=== PATIENT | female | born 1985 | race Caucasian/White ===

== ENCOUNTER → 2022-04-26 | Outpatient (CLI) | payer OTHER ==
[2022-04-26 14:01] LABS: BASO % 0.4 % (0.0-1.0); EOS # 0.2 10^3/uL (0.0-0.5); EOS % 3.8 % (0.0-3.0); HEMOGLOBIN 12.9 g/dl (12.0-15.5); LYMPH # 2.3 10^3/uL (1.5-5.0); LYMPH % 46.9 % (24.0-44.0); MEAN CORPUSCULAR HEMOGLOBIN 30.5 pg (27.0-33.0); MEAN CORPUSCULAR HGB CONC 34.9 g/dl (32.0-36.5); MEAN CORPUSCULAR VOLUME 87.5 fl (80.0-96.0); MONO # 0.5 10^3/uL (0.0-0.8); MONO % 9.6 % (2.0-8.0); NEUTROPHILS # 1.9 10^3/uL (1.5-8.5); NEUTROPHILS % 38.9 % (36.0-66.0); PLATELET COUNT, AUTOMATED 225 10^3/uL (150-450); RED BLOOD COUNT 4.23 10^6/uL (4.00-5.40); WHITE BLOOD COUNT 4.8 10^3/uL (4.0-10.0)
[2022-04-26 14:14] LABS: APPEARANCE, URINE MANUAL CLEAR (CLEAR); COLOR, URINE MANUAL YELLOW (YELLOW); SPECIFIC GRAVITY,URINE MANUAL 1.015 (1.002-1.035)
[2022-04-26 14:15] LABS: BILIRUBIN, URINE MANUAL NEGATIVE (NEGATIVE); BLOOD URINE MANUAL NEGATIVE (NEGATIVE); GLUCOSE, URINE (UA) MANUAL NEGATIVE (NEGATIVE); KETONE, URINE MANUAL NEGATIVE (NEGATIVE); LEUKOCYTE ESTERASE, URINE MAN NEGATIVE (NEGATIVE); NITRITE, URINE MANUAL NEGATIVE (NEGATIVE); PROTEIN, URINE MANUAL NEGATIVE (NEGATIVE); UROBILINOGEN, URINE MANUAL NORMAL (NORMAL)
[2022-04-26 14:40] LABS: FERRITIN 31.4 NG/ML (7.3-270.7)
[2022-04-26 14:41] LABS: ALBUMIN 3.4 G/DL (3.2-5.2); BLOOD UREA NITROGEN 16 MG/DL (9-23); CALCIUM LEVEL 8.9 MG/DL (8.5-10.1); CARBON DIOXIDE LEVEL 28 MMOL/L (20-31); CHLORIDE LEVEL 102 MMOL/L (98-107); CREATININE FOR GFR 0.69 MG/DL (0.55-1.30); GLOMERULAR FILTRATION RATE > 60.0 (>60); GLUCOSE, FASTING 90 MG/DL (60-100); IRON (FE) 72 UG/DL (50-170); PERCENT SATURATION 20.7 % (13.2-45.0); PHOSPHORUS LEVEL 4.8 MG/DL (2.5-4.9); POTASSIUM SERUM 4.3 MMOL/L (3.5-5.1); SODIUM LEVEL 139 MMOL/L (136-145); TOTAL IRON BINDING CAPACITY 348 UG/DL (250-425)
[2022-04-26 14:43] LABS: TOTAL 25(OH) VITAMIN D 20.5 NG/ML (20.0-100.0)
[2022-04-26 14:52] LABS: HEPATITIS B SURFACE ANTIGEN NEGATIVE (NEGATIVE)
[2022-04-26 15:14] LABS: HEPATITIS B CORE ANTIBODY IGM NEGATIVE (NEGATIVE)
[2022-04-26 15:35] LABS: HEPATITIS C VIRUS ABY INDEX 7.9 INDEX (<0.8)
== END ==
LOC: M PLALAB 11:03
PROVIDERS: ATTEND Physician Assistant
DX: Z02.2 Encounter for examination for admission to residential institution (principal); D50.9 Iron deficiency anemia, unspecified; E55.9 Vitamin D deficiency, unspecified

== ENCOUNTER 2022-07-18 07:34 | Inpatient (IN) | payer OTHER ==
[~2022-07-18] VITALS: Ht 157.5 cm; Wt 99.8 kg
[2022-07-18] MEDS ORDERED: OMEP-173 PO (07:42)
[2022-07-18] MEDS ORDERED: FLUO40CA PO (07:42)
[2022-07-18] MEDS ORDERED: BUPR300T92 PO (07:42)
[2022-07-18] MEDS ORDERED: SUBL300I SC (07:42)
[2022-07-18] MEDS ORDERED: GABA600T4 (07:42)
[2022-07-18] MEDS ORDERED: CEFD250S26 PO (07:43)
[2022-07-18 08:11] LABS: BASO % 0.6 % (0.0-1.0); EOS # 0.1 10^3/uL (0.0-0.5); EOS % 2.6 % (0.0-3.0); HEMATOCRIT 40.6 % (36.0-47.0); HEMOGLOBIN 14.6 g/dl (12.0-15.5); LYMPH # 1.4 10^3/uL (1.5-5.0); LYMPH % 26.1 % (24.0-44.0); MEAN CORPUSCULAR HEMOGLOBIN 30.3 pg (27.0-33.0); MEAN CORPUSCULAR VOLUME 84.2 fl (80.0-96.0); MONO # 0.4 10^3/uL (0.0-0.8); MONO % 6.9 % (2.0-8.0); NEUTROPHILS # 3.4 10^3/uL (1.5-8.5); NEUTROPHILS % 63.4 % (36.0-66.0); RED BLOOD COUNT 4.82 10^6/uL (4.00-5.40); WHITE BLOOD COUNT 5.4 10^3/uL (4.0-10.0)
[2022-07-18 08:34] LABS: HCG, SERUM QUALITATIVE NEGATIVE (NEGATIVE)
[2022-07-18 08:41] LABS: ETHYL ALCOHOL (ETHANOL) < 0.003 % (0.000-0.010)
[2022-07-18 08:42] LABS: ACETAMINOPHEN LEVEL < 2.0 UG/ML (10.0-20.0)
[2022-07-18 08:43] LABS: ALBUMIN 3.8 G/DL (3.2-5.2); ALKALINE PHOSPHATASE 91 U/L (46-116); ALT/SGPT 54 U/L (7.0-40); AST/SGOT 64 U/L (<34); BILIRUBIN,DIRECT 0.1 MG/DL (<0.4); BILIRUBIN,TOTAL 0.4 MG/DL (0.3-1.2); BLOOD UREA NITROGEN 11 MG/DL (9-23); CALCIUM LEVEL 8.7 MG/DL (8.5-10.1); CARBON DIOXIDE LEVEL 21 MMOL/L (20-31); CHLORIDE LEVEL 106 MMOL/L (98-107); CREATININE FOR GFR 0.74 MG/DL (0.55-1.30); GLOMERULAR FILTRATION RATE > 60.0 (>60); GLUCOSE, FASTING 112 MG/DL (60-100); POTASSIUM SERUM 3.7 MMOL/L (3.5-5.1); SALICYLATE LEVEL < 3.0 MG/DL (<30); SODIUM LEVEL 136 MMOL/L (136-145); TOTAL PROTEIN 7.2 G/DL (5.7-8.2)
[2022-07-18 08:44] LABS: THYROID STIMULATING HORMONE 0.822 uIU/ML (0.55-4.78)
[2022-07-18 08:47] LABS: CPK CREATINE PHOSPHOKINASE 92 U/L (34-145)
[2022-07-18] MEDS ORDERED: ISOVUE-370 76% 100ML VIAL As Ordered ONE (08:50)
[2022-07-18] MEDS: NICOTINE 21MG/24HR 1 EA TRANSDERMAL TD SCH (09:00)
[2022-07-18] MEDS ORDERED: diphenhydrAMINE 25MG CAP PO PRN (12:45)
[2022-07-18] MEDS ORDERED: MAALOX 30 ML SUSP *UDC PO PRN (12:45)
[2022-07-18] MEDS ORDERED: IBUPROFEN 400MG TAB PO PRN ×2 (12:45→22:15)
[2022-07-18 13:04] LABS: AMPHETAMINES LEVEL URINE NEGATIVE (NEGATIVE); BARBITURATES URINE NEGATIVE (NEGATIVE); BENZODIAZEPINES URINE NEGATIVE (NEGATIVE); CANNABINOIDS URINE NEGATIVE (NEGATIVE); COCAINE METABOLITE URINE NEGATIVE (NEGATIVE); METHADONE URINE NEGATIVE (NEGATIVE); OPIATES URINE NEGATIVE (NEGATIVE); PHENCYCLIDINE URINE NEGATIVE (NEGATIVE)
[2022-07-18] MEDS ORDERED: HAIRTAB10 PO (14:05)
[2022-07-18] MEDS ORDERED: GABA800T4 PO (14:05)
[2022-07-18] MEDS ORDERED: CETI10TA4 PO (14:05)
[2022-07-18] MEDS ORDERED: HYDR-3363 PO (14:05)
[2022-07-18] MEDS ORDERED: NICO1DIS12 TD (14:05)
[2022-07-18] MEDS ORDERED: VESI5TAB2 PO (14:05)
[2022-07-18] MEDS ORDERED: SUMA100T2 PO (14:05)
[2022-07-18] MEDS ORDERED: CEFD300C41 PO (14:05)
[2022-07-18] MEDS ORDERED: DOXA1TAB40 PO (14:05)
[2022-07-18] MEDS ORDERED: IBUP200T46 PO (14:05)
[2022-07-18] MEDS ORDERED: ONDA-83 PO (14:05)
[2022-07-18] MEDS ORDERED: NICO-265 MT (14:08)
[2022-07-18] MEDS ORDERED: HOME MED LIST COMPLETE! XX SCH (14:10)
[2022-07-18 17:51] VITALS: BP 100/58
[2022-07-18] MEDS: ACETAMINOPHEN TAB 650MG DOSE (2X325MG) PO PRN (17:56)
[2022-07-18] MEDS: CEFDINIR 300 MG CAP (OMNICEF) PO SCH (22:54)
[2022-07-18] MEDS: GABAPENTIN 400MG CAP PO SCH (22:58)
[2022-07-18] MEDS: DOXAZOSIN MESYLATE 4 MG TAB PO SCH (22:58)
[2022-07-18] MEDS: SUMAtriptan SUCCINATE 25 MG TAB PO PRN (22:58)
[2022-07-19 06:17] VITALS: BP 106/55
[2022-07-19] MEDS: NICOTINE 21MG/24HR 1 EA TRANSDERMAL TD SCH (08:50)
[2022-07-19] MEDS: CETIRIZINE (ZyrTEC) 10 MG TAB PO SCH (08:50)
[2022-07-19] MEDS: GABAPENTIN 400MG CAP PO SCH ×3 (08:50→21:00)
[2022-07-19] MEDS: ACETAMINOPHEN TAB 650MG DOSE (2X325MG) PO PRN (08:51)
[2022-07-19] MEDS: OMEPRAZOLE 20MG CAP PO SCH (08:51)
[2022-07-19] MEDS: buPROPion **XL** TABLET 150MG (WELLBUTRIN XL) PO SCH (08:51)
[2022-07-19] MEDS: SOLIFENACIN 5 MG TAB PO SCH (08:51)
[2022-07-19] MEDS: CEFDINIR 300 MG CAP (OMNICEF) PO SCH ×2 (08:52→21:00)
[2022-07-19] MEDS ORDERED: NICOTINE 21MG/24HR 1 EA TRANSDERMAL TD SCH (09:00)
[2022-07-19] MEDS ORDERED: FLUoxetine 20MG CAP PO SCH (09:00)
[2022-07-19 16:18] VITALS: BP 115/67
[2022-07-19] MEDS: DOXAZOSIN MESYLATE 4 MG TAB PO SCH (21:00)
[2022-07-19] MEDS: MOM 30ML SUSPENSION UDC PO PRN (22:23)
[2022-07-19] MEDS: OLANZapine ORAL DISINTEGRATING TAB 5MG PO PRN (22:23)
[2022-07-20 06:29] VITALS: BP 91/61
[2022-07-20] MEDS: CETIRIZINE (ZyrTEC) 10 MG TAB PO SCH (08:44)
[2022-07-20] MEDS: CEFDINIR 300 MG CAP (OMNICEF) PO SCH ×2 (08:44→20:58)
[2022-07-20] MEDS: SOLIFENACIN 5 MG TAB PO SCH (08:44)
[2022-07-20] MEDS: OMEPRAZOLE 20MG CAP PO SCH (08:44)
[2022-07-20] MEDS: buPROPion **XL** TABLET 150MG (WELLBUTRIN XL) PO SCH (08:44)
[2022-07-20] MEDS: GABAPENTIN 400MG CAP PO SCH ×3 (08:44→20:58)
[2022-07-20] MEDS: NICOTINE 21MG/24HR 1 EA TRANSDERMAL TD SCH (08:44)
[2022-07-20] MEDS: FLUoxetine 20MG CAP PO SCH (08:45)
[2022-07-20 16:36] VITALS: BP 98/56
[2022-07-20] MEDS: DOXAZOSIN MESYLATE 4 MG TAB PO SCH (20:58)
[2022-07-20] MEDS: hydrOXYzine 50 MG TAB PO PRN (20:58)
[2022-07-21] MEDS: OLANZapine ORAL DISINTEGRATING TAB 5MG PO PRN ×2 (00:55→22:27)
[2022-07-21 07:01] VITALS: BP 99/49
[2022-07-21] MEDS: buPROPion **XL** TABLET 150MG (WELLBUTRIN XL) PO SCH (09:06)
[2022-07-21] MEDS: OMEPRAZOLE 20MG CAP PO SCH (09:06)
[2022-07-21] MEDS: ACETAMINOPHEN TAB 650MG DOSE (2X325MG) PO PRN (09:06)
[2022-07-21] MEDS: CEFDINIR 300 MG CAP (OMNICEF) PO SCH ×2 (09:06→21:02)
[2022-07-21] MEDS: GABAPENTIN 400MG CAP PO SCH ×3 (09:06→21:03)
[2022-07-21] MEDS: FLUoxetine 20MG CAP PO SCH (09:06)
[2022-07-21] MEDS: SOLIFENACIN 5 MG TAB PO SCH (09:06)
[2022-07-21] MEDS: CETIRIZINE (ZyrTEC) 10 MG TAB PO SCH (09:06)
[2022-07-21] MEDS: NICOTINE 21MG/24HR 1 EA TRANSDERMAL TD SCH (09:07)
[2022-07-21] MEDS: hydrOXYzine 50 MG TAB PO PRN ×2 (09:46→19:45)
[2022-07-21 18:52] VITALS: BP 115/63
[2022-07-21] MEDS: SUMAtriptan SUCCINATE 25 MG TAB PO PRN (19:46)
[2022-07-21] MEDS: DOXAZOSIN MESYLATE 4 MG TAB PO SCH (21:05)
[2022-07-21] MEDS: MOM 30ML SUSPENSION UDC PO PRN (21:47)
[2022-07-22 06:04] VITALS: BP 110/66
[2022-07-22] MEDS ORDERED: ARIPiprazole 2 MG TAB PO SCH (09:00)
[2022-07-22] MEDS ORDERED: BUPRENORPHINE SQ SCH (09:00)
[2022-07-22] MEDS: GABAPENTIN 400MG CAP PO SCH ×3 (09:14→20:50)
[2022-07-22] MEDS: FLUoxetine 20MG CAP PO SCH (09:14)
[2022-07-22] MEDS: OMEPRAZOLE 20MG CAP PO SCH (09:14)
[2022-07-22] MEDS: CETIRIZINE (ZyrTEC) 10 MG TAB PO SCH (09:14)
[2022-07-22] MEDS: buPROPion **XL** TABLET 150MG (WELLBUTRIN XL) PO SCH (09:14)
[2022-07-22] MEDS: NICOTINE 21MG/24HR 1 EA TRANSDERMAL TD SCH (09:15)
[2022-07-22] MEDS: CEFDINIR 300 MG CAP (OMNICEF) PO SCH ×2 (09:15→20:48)
[2022-07-22] MEDS: SOLIFENACIN 5 MG TAB PO SCH (09:15)
[2022-07-22] MEDS: MIRALAX *UNIT DOSE* 17GM PACKET PO PRN (12:21)
[2022-07-22 18:45] VITALS: BP 136/72
[2022-07-22] MEDS: ONDANSETRON 4MG TAB PO PRN (18:50)
[2022-07-22] MEDS: hydrOXYzine 50 MG TAB PO PRN (20:48)
[2022-07-22] MEDS: DOXAZOSIN MESYLATE 4 MG TAB PO SCH (20:49)
[2022-07-22] MEDS: MOM 30ML SUSPENSION UDC PO PRN (20:52)
[2022-07-23 06:17] VITALS: BP 101/59
[2022-07-23] MEDS: ONDANSETRON 4MG TAB PO PRN (08:48)
[2022-07-23] MEDS ORDERED: ONDANSETRON 4MG TAB PO PRN (11:30)
[2022-07-23] MEDS: CEFDINIR 300 MG CAP (OMNICEF) PO SCH ×2 (13:28→22:20)
[2022-07-23] MEDS: SOLIFENACIN 5 MG TAB PO SCH (13:28)
[2022-07-23] MEDS: CETIRIZINE (ZyrTEC) 10 MG TAB PO SCH (13:28)
[2022-07-23] MEDS: buPROPion **XL** TABLET 150MG (WELLBUTRIN XL) PO SCH (13:28)
[2022-07-23] MEDS: NICOTINE 21MG/24HR 1 EA TRANSDERMAL TD SCH (13:28)
[2022-07-23] MEDS: OMEPRAZOLE 20MG CAP PO SCH (13:29)
[2022-07-23] MEDS: FLUoxetine 20MG CAP PO SCH (13:29)
[2022-07-23] MEDS: GABAPENTIN 400MG CAP PO SCH ×3 (13:29→22:18)
[2022-07-23 18:58] VITALS: BP 101/52
[2022-07-23] MEDS: hydrOXYzine 50 MG TAB PO PRN (22:20)
[2022-07-23] MEDS: DOXAZOSIN MESYLATE 4 MG TAB PO SCH (22:20)
[2022-07-23] MEDS: MIRALAX *UNIT DOSE* 17GM PACKET PO PRN (22:26)
[2022-07-24 06:29] VITALS: BP 97/50
[2022-07-24 08:23] LABS: CHOLESTEROL RISK RATIO 3.63 (<5); HDL CHOLESTEROL 47.1 MG/DL (>40); LDL CHOLESTEROL 94.5 MG/DL (<100); NON-HDL-C 123.9 MG/DL
[2022-07-24] MEDS: buPROPion **XL** TABLET 150MG (WELLBUTRIN XL) PO SCH (09:44)
[2022-07-24] MEDS: FLUoxetine 20MG CAP PO SCH (09:45)
[2022-07-24] MEDS: CETIRIZINE (ZyrTEC) 10 MG TAB PO SCH (09:45)
[2022-07-24] MEDS: OMEPRAZOLE 20MG CAP PO SCH (09:45)
[2022-07-24] MEDS: SOLIFENACIN 5 MG TAB PO SCH (09:46)
[2022-07-24] MEDS: GABAPENTIN 400MG CAP PO SCH ×3 (09:46→20:29)
[2022-07-24] MEDS: CEFDINIR 300 MG CAP (OMNICEF) PO SCH ×2 (09:46→20:29)
[2022-07-24] MEDS: NICOTINE 21MG/24HR 1 EA TRANSDERMAL TD SCH (09:47)
[2022-07-24] MEDS: hydrOXYzine 50 MG TAB PO PRN ×2 (09:50→20:29)
[2022-07-24] MEDS: OLANZapine ORAL DISINTEGRATING TAB 5MG PO PRN ×2 (12:19→21:48)
[2022-07-24] MEDS: SENNA 8.6 MG TAB (SENOKOT) PO PRN (15:38)
[2022-07-24 17:53] VITALS: BP 125/62
[2022-07-24] MEDS: MIRALAX *UNIT DOSE* 17GM PACKET PO PRN (17:55)
[2022-07-24] MEDS: DOXAZOSIN MESYLATE 4 MG TAB PO SCH (20:29)
[2022-07-24] MEDS: BREXPIPRAZOLE 0.5MG TABLET (REXULTI) PO SCH (20:29)
[2022-07-24] MEDS ORDERED: BREXPIPRAZOLE 0.5MG TABLET (REXULTI) PO SCH (21:00)
[2022-07-25 06:58] VITALS: BP 95/55
[2022-07-25] MEDS: CEFDINIR 300 MG CAP (OMNICEF) PO SCH ×2 (09:47→21:16)
[2022-07-25] MEDS: GABAPENTIN 400MG CAP PO SCH ×3 (09:47→21:15)
[2022-07-25] MEDS: buPROPion **XL** TABLET 150MG (WELLBUTRIN XL) PO SCH (09:47)
[2022-07-25] MEDS: OMEPRAZOLE 20MG CAP PO SCH (09:48)
[2022-07-25] MEDS: SOLIFENACIN 5 MG TAB PO SCH (09:48)
[2022-07-25] MEDS: hydrOXYzine 50 MG TAB PO PRN ×2 (09:48→16:55)
[2022-07-25] MEDS: CETIRIZINE (ZyrTEC) 10 MG TAB PO SCH (09:49)
[2022-07-25] MEDS: FLUoxetine 20MG CAP PO SCH (09:49)
[2022-07-25] MEDS: SENNA 8.6 MG TAB (SENOKOT) PO PRN ×2 (09:49→21:16)
[2022-07-25] MEDS: NICOTINE 21MG/24HR 1 EA TRANSDERMAL TD SCH (09:55)
[2022-07-25 15:58] VITALS: BP 127/74
[2022-07-25] MEDS: MIRALAX *UNIT DOSE* 17GM PACKET PO PRN (16:10)
[2022-07-25] MEDS: BREXPIPRAZOLE 0.5MG TABLET (REXULTI) PO SCH (21:16)
[2022-07-25] MEDS: DOXAZOSIN MESYLATE 4 MG TAB PO SCH (21:16)
[2022-07-26] MEDS: OLANZapine ORAL DISINTEGRATING TAB 5MG PO PRN ×3 (04:52→21:27)
[2022-07-26 07:03] VITALS: BP 97/56
[2022-07-26] MEDS: CEFDINIR 300 MG CAP (OMNICEF) PO SCH (08:26)
[2022-07-26] MEDS: CETIRIZINE (ZyrTEC) 10 MG TAB PO SCH (08:26)
[2022-07-26] MEDS: NICOTINE 21MG/24HR 1 EA TRANSDERMAL TD SCH (08:26)
[2022-07-26] MEDS: buPROPion **XL** TABLET 150MG (WELLBUTRIN XL) PO SCH (08:26)
[2022-07-26] MEDS: GABAPENTIN 400MG CAP PO SCH ×3 (08:27→21:28)
[2022-07-26] MEDS: FLUoxetine 20MG CAP PO SCH (08:27)
[2022-07-26] MEDS: hydrOXYzine 50 MG TAB PO PRN (08:27)
[2022-07-26] MEDS: OMEPRAZOLE 20MG CAP PO SCH (08:27)
[2022-07-26] MEDS: SOLIFENACIN 5 MG TAB PO SCH (08:27)
[2022-07-26] MEDS: SENNA 8.6 MG TAB (SENOKOT) PO PRN (08:27)
[2022-07-26] MEDS ORDERED: BISACODYL 10MG SUPP PR ONE (16:50)
[2022-07-26 17:47] VITALS: BP 103/52
[2022-07-26] MEDS: BREXPIPRAZOLE 0.5MG TABLET (REXULTI) PO SCH (21:27)
[2022-07-26] MEDS: DOXAZOSIN MESYLATE 4 MG TAB PO SCH (21:30)
[2022-07-27 06:00] VITALS: BP 100/60
[2022-07-27] MEDS: CETIRIZINE (ZyrTEC) 10 MG TAB PO SCH (09:00)
[2022-07-27] MEDS: OMEPRAZOLE 20MG CAP PO SCH (09:01)
[2022-07-27] MEDS: FLUoxetine 20MG CAP PO SCH (09:02)
[2022-07-27] MEDS: SOLIFENACIN 5 MG TAB PO SCH (09:03)
[2022-07-27] MEDS: GABAPENTIN 400MG CAP PO SCH ×3 (09:03→21:46)
[2022-07-27] MEDS: OLANZapine ORAL DISINTEGRATING TAB 5MG PO PRN ×3 (09:04→21:50)
[2022-07-27] MEDS: SENNA 8.6 MG TAB (SENOKOT) PO PRN ×2 (09:04→21:49)
[2022-07-27] MEDS: NICOTINE 21MG/24HR 1 EA TRANSDERMAL TD SCH (09:06)
[2022-07-27] MEDS: buPROPion **XL** TABLET 150MG (WELLBUTRIN XL) PO SCH (09:07)
[2022-07-27] MEDS: hydrOXYzine 50 MG TAB PO PRN (16:13)
[2022-07-27] MEDS: MIRALAX *UNIT DOSE* 17GM PACKET PO PRN (17:47)
[2022-07-27 18:00] VITALS: BP 112/63
[2022-07-27] MEDS: DOXAZOSIN MESYLATE 4 MG TAB PO SCH (21:46)
[2022-07-27] MEDS: BREXPIPRAZOLE 0.5MG TABLET (REXULTI) PO SCH (21:46)
[2022-07-28] MEDS: OLANZapine ORAL DISINTEGRATING TAB 5MG PO PRN ×4 (04:00→20:17)
[2022-07-28 06:37] VITALS: BP 103/56
[2022-07-28] MEDS: OMEPRAZOLE 20MG CAP PO SCH (09:22)
[2022-07-28] MEDS: SENNA 8.6 MG TAB (SENOKOT) PO PRN ×2 (09:22→20:17)
[2022-07-28] MEDS: buPROPion **XL** TABLET 150MG (WELLBUTRIN XL) PO SCH (09:22)
[2022-07-28] MEDS: SOLIFENACIN 5 MG TAB PO SCH (09:22)
[2022-07-28] MEDS: FLUoxetine 20MG CAP PO SCH (09:22)
[2022-07-28] MEDS: CETIRIZINE (ZyrTEC) 10 MG TAB PO SCH (09:22)
[2022-07-28] MEDS: GABAPENTIN 400MG CAP PO SCH ×3 (09:23→20:16)
[2022-07-28] MEDS: NICOTINE 21MG/24HR 1 EA TRANSDERMAL TD SCH (09:24)
[2022-07-28] MEDS: MIRALAX *UNIT DOSE* 17GM PACKET PO PRN (15:05)
[2022-07-28 16:30] VITALS: BP 127/67
[2022-07-28] MEDS: BREXPIPRAZOLE 0.5MG TABLET (REXULTI) PO SCH (20:16)
[2022-07-28] MEDS: DOXAZOSIN MESYLATE 4 MG TAB PO SCH (20:17)
[2022-07-29] MEDS: hydrOXYzine 50 MG TAB PO PRN ×2 (06:16→15:54)
[2022-07-29] MEDS: ACETAMINOPHEN TAB 650MG DOSE (2X325MG) PO PRN (06:17)
[2022-07-29 06:33] VITALS: BP 132/82
[2022-07-29] MEDS: SOLIFENACIN 5 MG TAB PO SCH (08:04)
[2022-07-29] MEDS: SENNA 8.6 MG TAB (SENOKOT) PO PRN ×2 (08:04→20:35)
[2022-07-29] MEDS: CETIRIZINE (ZyrTEC) 10 MG TAB PO SCH (08:04)
[2022-07-29] MEDS: FLUoxetine 20MG CAP PO SCH (08:05)
[2022-07-29] MEDS: GABAPENTIN 400MG CAP PO SCH ×3 (08:07→20:35)
[2022-07-29] MEDS: buPROPion **XL** TABLET 150MG (WELLBUTRIN XL) PO SCH (08:07)
[2022-07-29] MEDS: OMEPRAZOLE 20MG CAP PO SCH (08:07)
[2022-07-29] MEDS: NICOTINE 21MG/24HR 1 EA TRANSDERMAL TD SCH (08:07)
[2022-07-29] MEDS: OLANZapine ORAL DISINTEGRATING TAB 5MG PO PRN ×3 (08:08→20:35)
[2022-07-29 16:00] VITALS: BP 127/69
[2022-07-29] MEDS: OLANZapine 5 MG TAB PO SCH (20:35)
[2022-07-29] MEDS: DOXAZOSIN MESYLATE 4 MG TAB PO SCH (20:35)
[2022-07-30] MEDS: OLANZapine ORAL DISINTEGRATING TAB 5MG PO PRN ×4 (06:43→19:15)
[2022-07-30 06:56] VITALS: BP 90/55
[2022-07-30] MEDS: OMEPRAZOLE 20MG CAP PO SCH (09:31)
[2022-07-30] MEDS: CETIRIZINE (ZyrTEC) 10 MG TAB PO SCH (09:31)
[2022-07-30] MEDS: GABAPENTIN 400MG CAP PO SCH ×3 (09:31→19:15)
[2022-07-30] MEDS: hydrOXYzine 50 MG TAB PO PRN ×2 (09:31→16:54)
[2022-07-30] MEDS: FLUoxetine 20MG CAP PO SCH (09:31)
[2022-07-30] MEDS: buPROPion **XL** TABLET 150MG (WELLBUTRIN XL) PO SCH (09:31)
[2022-07-30] MEDS: SOLIFENACIN 5 MG TAB PO SCH (09:31)
[2022-07-30] MEDS: NICOTINE 21MG/24HR 1 EA TRANSDERMAL TD SCH (09:32)
[2022-07-30] MEDS: SENNA 8.6 MG TAB (SENOKOT) PO PRN (09:32)
[2022-07-30] MEDS ORDERED: OLAN1TAB16 PO (16:11)
[2022-07-30] MEDS ORDERED: FLUO20CA22 PO (16:11)
[2022-07-30] MEDS ORDERED: BUPR150T12 PO (16:11)
[2022-07-30 16:15] VITALS: BP 137/80
[2022-07-30] MEDS: OLANZapine 5 MG TAB PO SCH (19:14)
[2022-07-30 19:15] VITALS: BP 137/80
[2022-07-30] MEDS: DOXAZOSIN MESYLATE 4 MG TAB PO SCH (19:15)
== END 2022-07-30 19:20 | DRG 753 ==
LOC: M ED 07:34 → M ED INP 12:44 → M PSY 16:52
PROVIDERS: ADMIT Psychiatry & Neurology Psychiatry; ATTEND Psychiatry & Neurology Psychiatry
DX: F39 Unspecified mood [affective] disorder (principal); F32.2 Major depressive disorder, single episode, severe without psychotic features; R45.851 Suicidal ideations; F41.1 Generalized anxiety disorder; F17.200 Nicotine dependence, unspecified, uncomplicated; F11.10 Opioid abuse, uncomplicated; F12.10 Cannabis abuse, uncomplicated; K21.9 Gastro-esophageal reflux disease without esophagitis; Z62.811 Personal history of psychological abuse in childhood; Z62.810 Personal history of physical and sexual abuse in childhood; Z79.899 Other long term (current) drug therapy; Z88.0 Allergy status to penicillin; Z88.8 Allergy status to other drugs, medicaments and biological substances; Z91.51 Personal history of suicidal behavior; T18.2XXA Foreign body in stomach, initial encounter; Y92.230 Patient room in hospital as the place of occurrence of the external cause